=== PATIENT | female | born 1940 | race Caucasian/White ===

== ENCOUNTER 2022-07-02 13:06 | Emergency (ER) | payer MEDICARE, OTHER, SELFPAY ==
[2022-07-02 13:08] VITALS: BP 220/110; PULSE 111; RESP 16; TEMP 36.5; O2SAT 97; BMI 19.5
--- NOTE | 2022-07-02 13:16 | EKG12_ITS ---
Test Reason : CP Blood Pressure : / mmHG Vent. Rate : 089 BPM Atrial Rate : 089 BPM P-R Int : 126 ms QRS Dur : 090 ms QT Int : 380 ms P-R-T Axes : 063 015 061 degrees QTc Int : 462 ms Normal sinus rhythm Nonspecific ST abnormality Abnormal ECG Confirmed by KVNG ANN, MORRIS ([id number]), avid editor CATIA MALCOLM ([id number]) on 07/03/2022 9:44:51 AM Referred By: LEAH Confirmed By:MORRIS CALDERON MD
--- NOTE | 2022-07-02 13:16 | RAD_ITS ---
STUDY: X-RAY CHEST REASON FOR EXAM: Female, 81 years old. Chest pain TECHNIQUE: Single AP portable view of the chest. COMPARISON: None. FINDINGS: Hyperinflation. The lungs are clear. There is no demonstrated pleural abnormality. Normal size heart. Normal mediastinum and robbin. Normal visualized pulmonary arteries. There is atherosclerotic calcification of the aortic arch with tortuosity. There are diffuse degenerative changes of the visualized thoracic spine. Normal visualized ribs, clavicles, and shoulders. There is no demonstrated abnormality of the visualized soft tissue structures of the upper abdomen. RAD/Chest 1 View (Portable) IMPRESSION: Hyperinflation. The lungs are clear. Electronically Signed: Misael Enrique MD at 15:10 EST ,
[2022-07-02 13:40] LABS: Absolute Lymphocyte Count 1.55 X10^3/uL (0.83-4.51); Absolute Neutrophil Count 4.1 X10^3/uL (2.0-7.7); Basophil# 0.04 X10^3/uL; Basophil% 0.6 % (0-1); Eosinophil# 0.13 X10^3/uL; Hematocrit 36.4 % (37-47); Hemoglobin 12.2 g/dL (12.0-15.0); Lymphocyte # 1.55 X10^3/ul (0.83-4.51); Lymphocyte % 23.8 % (19-41); Mean Corp Hgb Conc 33.5 g/dL (32-36); Mean Corpuscular Hgb 35.4 pg (27.0-32.0); Mean Corpuscular Volume 105.5 fL (81-99); Mean Platelet Vol. 9.8 fl (6.2-12.0); Monocyte# 0.65 X10^3/uL; NRBC Flagged by Analyzer 0 % (0-5); Neutrophil # 4.13 X10^3/uL (2.7-7.7); Neutrophil % 63.4 % (47-70); Platelet Count 225 K/mm3 (150-450); RBC Distribution Width CV 12.3 % (11.6-14.6); RBC Distribution Width SD 48.8 fl (35.1-43.9); Red Blood Count 3.45 M/mm3 (4.2-5.4); White Blood Count 6.5 K/mm3 (4.4-11.0)
[2022-07-02 13:56] LABS: Anion Gap 3 (5-15); BUN 21 mg/dL (7-18); BUN/Creat Ratio 25.6 RATIO (10-20); Calcium,Total 9.3 mg/dL (8.5-10.1); Chloride 103 mmol/L (98-107); Creatinine, Serum 0.82 mg/dL (0.55-1.02); EST Glomerular Filtration Rate 71 mL/min (>60); Est Glom Filt Rate - Afr Amer 86 mL/min (>60); Estimated Creatinine Clearance 43.82 ml/min; Glucose 131 mg/dL (74-106); Potassium 3.9 mmol/L (3.5-5.1); Sodium Level 137 mmol/L (136-145); Troponin-I HS 8 pg/mL (3.0-54.0)
[2022-07-02 14:06] VITALS: BP 182/98
--- NOTE | 2022-07-02 14:31 | EDS_ITS ---
HPI History of Present Illness Chief Complaint: Palpitations Detail of Chief Complaint: Palpitations Informant: patient Onset/Context/Timing Onset: Today Context: Sudden Onset Quality: I feel my heart beating in my chest Location: Chest Current Severity: Gone Maximum Severity: Moderate Worsened by: Nothing Relieved by: Nothing Associated Symptoms Associated Symptoms: None Narrative Narrative: Patient is a 81-year-old woman who presents with palpitations. She denies shortness of breath, dyspnea on exertion, orthopnea or PND. She denies chest discomfort. She denies history of PE or DVT. She denies leg pain, swelling discoloration. She denies abdominal pain. She denies black or maroon-colored stool. She denies headache, visual, ocular auditory symptoms. She denies ringing or ears. She denies numbness or tingling in her arms or legs. She denies problems with coordination or balance. She denies problems with speech. She denies problems swallowing. She recently visited her primary care physician. Her blood pressure was increased. Patient does have history of hypertension. Old records date back to 2012 and indicate patient has history of uterine prolapse. She also has history of hypertension. [facility] Medical History (Updated 07/02/22 @ 15:[address] Brent Riley MD) HTN (hypertension) Home Medications losartan 25 mg tablet 50 mg PO DAILY 07/02/22 [History Last Taken Unknown] meloxicam 15 mg tablet 15 mg PO DAILY 07/02/22 [History Last Taken Unknown] Allergy/AdvReac Type Severity Reaction Status Date / Time No Known Allergies Allergy Verified 07/02/22 13:09 Social History (Updated 07/02/22 @ 14:[address] Brent Riley MD) household members: none Smoking Status: Never smoker substance use type: does not use ROS ROS ED Constitutional Constitutional ED: Denies chills, fever(s), subjective, sweats or weight loss Eyes Eyes: Denies blurry vision, change in vision or diplopia ENT ENT ED: Denies ear pain, rhinorrhea or sore throat Cardiovascular Cardiovascular: Reports other Details: Per HPI narrative ; Denies chest pain, orthopnea, palpitations, paroxysmal nocturnal dyspnea or racing heartbeat Respiratory/Chest Respiratory/Chest: Denies cough, dyspnea, dyspnea on exertion, orthopnea or paroxysmal nocturnal dyspnea Gastrointestinal Gastrointestinal: Denies abdominal pain, melena, nausea or vomiting Genitourinary Genitourinary ED: Denies dysuria, hematuria or urinary frequency Musculoskeletal Musculoskeletal: Reports other Details: Does complain of left hip pain. Is on NSAID for pain. ; Denies arthralgias, back pain, myalgias or neck pain Neurologic Neurologic: Denies headache(s), paresthesias or weakness Hematologic/Lymphatic Hematologic/Lymphatic: Reports systems reviewed and no addt'l complaints, except as documented; Denies easy bruising or lymphadenopathy Allergic/Immunologic Allergic/Immunologic ED: Denies mouth swelling, tongue swelling or urticaria EXAM Physical Exam Const Vital Signs: 07/02/22 13:08 07/02/22 14:06 07/02/22 14:06 Temperature 97.7 F L Temperature Source Oral Pulse Rate 111 H Respiratory Rate 16 Respiratory Pattern Blood Pressure 220/110 H 182/98 H Blood Pressure Mean 146 126 Pulse Ox 97 Oxygen Delivery Method Room Air Room Air 07/02/22 14:06 Temperature Temperature Source Pulse Rate Respiratory Rate Respiratory Pattern Normal Blood Pressure Blood Pressure Mean Pulse Ox Oxygen Delivery Method Positive well nourished and well developed General Appearance ED: well developed and NAD; Negative for cyanotic or diaphoretic HEENT Reports moist mucous membranes HEENT Narrative: Head is atraumatic normocephalic. Ears normal. Nares patent. Uvula midline. No abnormality posterior pharynx. There is no deviation with protrusion. Eyes PERRL and EOMs intact bilaterally General Eye ED: Negative for pale conjunctiva or scleral icterus Neck no lymphadenopathy, supple and no JVD Neck Narrative: Trachea is midline. There is no dysphonia. There is no stridor. Resp normal respiratory effort and clear to auscultation bilaterally Cardio regular rate, regular rhythm, S1 normal heart sound, S2 normal heart sound and no murmurs GI normal to inspection, nondistended, normoactive bowel sounds, non-tender, non- distended and no masses; Negative for hepatosplenomegaly Back/Spine no CVA tenderness Extremity normal to inspection General Extremety ED: Negative for edema or tenderness General Extremity: Negative for edema Neuro oriented x3, CN's II-XII intact bilaterally and no sensory deficits noted Sensorium / Orientation: alert Motor Exam: strength 5/5 throughout Psych mental status grossly normal Skin no rashes or lesions noted, no wounds and skin turgor normal MDM MDM MDM Narrative Medical decision making narrative: Patient's presents with palpitations. This is very nonspecific. Nurse protocol orders were placed. EKG was obtained to rule out dysrhythmia. Because of elevated blood pressure blood work was obtained to assess for endorgan dysfunction. She does have history of hypertension. Prior records were reviewed and summarized in the HPI narrative. Patient's losartan dose was increased to 25 mg to 50 mg. She is scheduled to see her practitioner next Saturday. Since patient is asymptomatic has no evidence of endorgan injury and recently had her medication dose doubled we will not add any new medication. Lab Data Attestation: I reviewed the patient's lab results. Lab results narrative: CBC reveals mild macrocytic anemia. Basic metabolic panel is unremarkable with a GFR of 71. Glucose is slightly dated 07/17. Labs: Laboratory Results - last 24 hr 07/02/22 07/02/22 13:32 13:32 WBC 6.5 RBC 3.45 L Hgb 12.2 Hct 36.4 L MCV 105.5 H MCH 35.4 H MCHC 33.5 RDW Std Deviation 48.8 H RDW Coeff of Frantz 12.3 Plt Count 225 MPV 9.8 Immature Gran % (Auto) 0.200 Neut % (Auto) 63.4 Lymph % (Auto) 23.8 [place] % (Auto) 10.0 Eos % (Auto) 2.0 Baso % (Auto) 0.6 Absolute Neuts (auto) 4.1 Absolute Lymphs (auto) 1.55 Nucleated RBC % 0 Sodium 137 Potassium 3.9 Chloride 103 Carbon Dioxide 31.0 Anion Gap 3 L BUN 21 H Creatinine 0.82 Estim Creat Clear Calc 43.82 Est GFR (MDRD) Af Amer 86 Est GFR (MDRD) Non-Af 71 BUN/Creatinine Ratio 25.6 H Glucose 131 H Calcium 9.3 Troponin I High Sens 8 Radiography Diagnostic Testing: Clinical Impression(s) from Imaging Studies Chest X-Ray 07/02/22 13:16 IMPRESSION: Hyperinflation. The lungs are clear. Electronically Signed: Misael Enrique MD at 15:10 EST , EKG Initial EKG: Attestation: I personally reviewed and interpreted this EKG as follows: Interpretation: Sinus Rhythm (The rate is 89. The EKG has artifact which computer is reading is nonspecific. The EKG is normal. AK interval 226 ms. QS duration 90 ms. QT duration 380 ms. [place] is normal.) Discharge Plan Triage Chief Complaint: Palpitations ED Provider: Brent Riley Dx/Rx/DC Orders Clinical Impression: Accelerated essential hypertension, Palpitations, Acute hyperglycemia Instructions: ED Hypertension, Established, ED Palpitations, ED Hyperglycemia New Susp Diabetes Prescriptions: No Action meloxicam 15 mg tablet 15 mg PO DAILY Label Comments: take 1 tablet by mouth once daily losartan 25 mg tablet 50 mg PO DAILY Primary Care Provider: BRIEN MONTOYA Referrals: BRIEN MONTOYA NP-C [Primary Care Provider] - Keep [facility] appointment Disposition Disposition: Home, Self Care
[2022-07-02 15:42] VITALS: BP 168/101; PULSE 68; RESP 18; TEMP 37; O2SAT 99
== END 2022-07-02 15:42 | disposition home or self-care (01) ==
PROVIDERS: Emergency Provider Emergency Medicine; PCP Nurse Practitioner; Visit Provider Emergency Medicine
DX: R00.2 Palpitations (principal); I10 Essential (primary) hypertension; R73.9 Hyperglycemia, unspecified
CPT/HCPCS: 71045; 80048; 84484; 85025; 93005; 99284; A4216

== ENCOUNTER → 2022-08-06 | Outpatient (CLI) | payer MEDICARE, OTHER, SELFPAY ==
--- NOTE | 2022-08-06 17:41 | STRESSREP ---
Stress Test Report Pharmacologic myocardial perfusion stress test. 81-year-old lady with a history of hypertension and for preoperative evaluation Resting EKG demonstrates sinus rhythm with a rate of 80 bpm and occasional premature ventricular complex. Resting blood pressure is 122/86 mmHg. 0.4 mg of regadenoson was infused per usual protocol followed by rapid intravenous saline flush injection. Continuous EKG monitoring was performed. The maximum heart rate was 104 bpm which was 73% of max impacted heart rate the maximum workload was 1 metabolic equivalent. At rest there were no ST or T wave changes noted to suggest ischemia and at peak infusion nonspecific ST changes were noted which did not meet the criteria for ischemia. No clinical angina is noted. The final blood pressure was 120/78 mmHg. Myocardial perfusion protocol. 11.5 mCi of technetium 99m sestamibi was injected at rest. 0.4 mg of regadenoson was infused per usual protocol. At peak infusion 36 mCi of technetium 99m sestamibi was injected stress images were obtained stress and rest images were reconstructed and compared in the short axis vertical long and horizontal long axis. Gated images were also obtained. Perfusion SPECT analysis: Review of the stress images demonstrate normal uptake of tracer noted in all areas of the myocardium. The resting images similar demonstrated normal uptake of tracer noted in all areas of the myocardium. No areas of reversibility are noted to suggest ischemia and no previous infarct is noted. Gated SPECT analysis: The gated ejection fraction is 58. Conclusion: Normal pharmacologic myocardial perfusion stress test. Normal ejection fraction.
== END | disposition home or self-care (01) ==
LOC: CVS 07:03
PROVIDERS: PCP Nurse Practitioner; Visit Provider Internal Medicine Cardiovascular Disease
DX: Z01.810 Encounter for preprocedural cardiovascular examination (principal)
CPT/HCPCS: 78452; 93017; A9500; A4216; J2785

== ENCOUNTER 2023-05-12 10:37 | Emergency (ER) | payer MEDICARE, OTHER, SELFPAY ==
[2023-05-12 10:38] VITALS: BP 190/111; PULSE 124; RESP 16; TEMP 36.6; O2SAT 100; BMI 213.2
--- NOTE | 2023-05-12 10:43 | ED.RN ---
Dr. Herrera aware of symptoms
--- NOTE | 2023-05-12 11:06 | EDS_ITS ---
HPI <FAWAD Zazueta - Last Filed: 05/12/23 13:38> History of Present Illness Chief Complaint: Dizziness Narrative Narrative: 82 year old female with PMH of HTN presents with lightheadedness. She felt briefly lightheaded 2 days ago and again this morning after waking up. She has no associated symptoms. Denies headache, vision changes, n/v, chest pain, sob, or abdominal pain. No recent fever or cough. No bladder or bowel changes. She is on losartan and hctz with no recent changes. She feels back to normal now. Denies vertiginious symptoms. She also has left hip soreness since a mechanical fall a week ago where she caught herself with both hands and did not directly hit her hip but she is worried because she has a replacement. PFSH <FAWAD Zazueta - Last Filed: 05/12/23 13:38> PFSH Medical History Essential hypertension Osteoarthritis Palpitations Uterine prolapse Home Medications acyclovir 400 mg tablet 400 mg PO BID 07/17/22 [History Last Taken Unknown] cholecalciferol (vitamin D3) 25 mcg (1,000 unit) capsule 25 mcg PO DAILY [History Last Taken Unknown] multivitamin 1 tab PO DAILY 07/17/22 [History Last Taken Unknown] vitamin B complex (B Complex-Vitamin B12 tablet) 1 tab PO DAILY 07/17/22 [History Last Taken Unknown] acetaminophen 650 mg tablet,extended release (Tylenol 8 Hour) 650 mg PO ONCE PRN 07/20/22 [History Last Taken Unknown] losartan 100 mg tablet 100 mg PO DAILY #90 tabs 07/20/22 [Rx Last Taken Unknown] psyllium husk 0.52 gram capsule (Fiber (psyllium husk)) 0.52 g PO BID 07/20/22 [History Last Taken Unknown] turmeric 900 mg-turmeric root extract 100 mg-black pepper 5 mg capsule 2 cap PO DAILY 07/20/22 [History Last Taken Unknown] Allergy/AdvReac Type Severity Reaction Status Date / Time No Known Allergies Allergy Verified 05/12/23 10:40 Family History Mother Cancer Breast Arthritis Dementia Father Cancer Liver Arthritis Surgical History History of bunionectomy of both great toes (~2005) History of hip replacement History of hysterectomy Social History household members: none Smoking Status: Never smoker alcohol intake: current alcohol intake frequency: a few times a week Alcohol type: wine substance use type: does not use caffeine: Yes Type: coffee Number of servings: 1 ROS <FAWAD Zazueta - Last Filed: 05/12/23 13:38> ROS ED ROS Narrative Constitutional: Negative for fever, chills, malaise. Eyes: Negative for visual change. CVS: Negative for palpitations, chest pain, syncope. Respiratory: Negative for shortness of breath, cough. GI: Negative for abdominal pain, nausea, vomiting, diarrhea, melena, hematochezia. : Negative for dysuria, hematuria or frequency. Neuro: Negative for headache, motor/sensory dysfunction. EXAM <FAWAD Zazueta - Last Filed: 05/12/23 13:38> Physical Exam Narrative Exam Narrative: CONST: Patient sitting in no acute distress. EYES: Normal inspection. PERRL, EOMI. ENT: Normal inspection, moist mucous membranes. NECK: Normal inspection. RESP: No respiratory distress, CTAB. CVS: Regular rate and rhythm, no murmur, no gallop. ABD: Soft and nontender, no guarding or rebound, nondistended. SKIN: Color normal, no rash, warm, dry, intact. EXTREMITIES: Normal appearance, no pedal edema. 5/5 upper and extremity strength, normal sensation, 2+ radial and PT pulses. NEURO: Oriented x4. Normal gait. PSYCH: Normal affect. Const Vital Signs: 05/12/23 10:38 05/12/23 11:44 Temperature 98 F Temperature Source Temporal Pulse Rate 124 H 91 Respiratory Rate 16 Blood Pressure 190/111 H 153/87 H Blood Pressure Mean 137 109 Pulse Ox 100 Oxygen Delivery Method Room Air <Vinay Canales MD - Last Filed: 05/12/23 19:16> Physical Exam Const Vital Signs: 05/12/23 10:38 05/12/23 11:44 Temperature 98 F Temperature Source Temporal Pulse Rate 124 H 91 Respiratory Rate 16 Blood Pressure 190/111 H 153/87 H Blood Pressure Mean 137 109 Pulse Ox 100 Oxygen Delivery Method Room Air [facility] <FAWAD Zazueta - Last Filed: 05/12/23 13:38> [facility] Narrative Medical decision making narrative: History gathered from: Patient and family member Patient had lightheadedness this morning with no associated symptoms. Now feels back to normal. She appears well and nontoxic. Initially she was hypertensive and tachycardic with repeat vitals are normal. During my examination heart rates in the 90s in sinus rhythm. Lungs clear. Abdomen soft and nontender. She is neurologically intact. She is describing lightheaded symptoms, not vertigo. Broad workup including CBC, BMP, UA are negative. EKG is sinus rhythm with no ischemic changes and troponin is 6. With normal neurological exam and no vertiginous symptoms I do not think a CT brain is indicated. She also complained of left hip soreness but has no tenderness or injuries on exam. X- ray was obtained due to her history of arthroplasty and is normal. She remains asymptomatic here and was discharged home to follow-up with primary care. Lab Data Attestation: I reviewed the patient's lab results. Labs: Laboratory Results - last 24 hr 05/12/23 05/12/23 11:23 11:40 WBC 6.2 RBC 3.62 L Hgb 12.8 Hct 38.2 MCV 105.5 H MCH 35.4 H MCHC 33.5 RDW Std Deviation 45.1 H RDW Coeff of Frantz 11.5 L Plt Count 232 MPV 10.1 Immature Gran % (Auto) 0.300 Neut % (Auto) 71.4 H Lymph % (Auto) 19.7 [place] % (Auto) 7.7 Eos % (Auto) 0.3 Baso % (Auto) 0.6 Absolute Neuts (auto) 4.4 Absolute Lymphs (auto) 1.22 Nucleated RBC % 0 Sodium 136 Potassium 3.7 Chloride 99 Carbon Dioxide 32.0 Anion Gap 5 BUN 18 Creatinine 0.91 Estim Creat Clear Calc 40.79 Est GFR (MDRD) Af Amer 76 Est GFR (MDRD) Non-Af 63 BUN/Creatinine Ratio 19.8 Glucose 139 H Calcium 9.6 Troponin I High Sens 6 Urine Color Yellow Urine Clarity Clear Urine pH 7.0 Ur Specific [place] 1.010 Urine Protein Negative Urine Glucose (UA) Normal Urine Ketones Negative Urine Occult Blood Negative Urine Nitrite Negative Urine Bilirubin Negative Urine Urobilinogen Normal Ur Leukocyte Esterase Negative Urine RBC 0 SEEN Urine WBC 0 SEEN Ur Squamous Epith Cells 0 SEEN Urine Bacteria 0 SEEN Urine Mucus 0 SEEN Radiography Diagnostic Testing: Clinical Impression(s) from Imaging Studies Chest X-Ray 05/12/23 11:45 IMPRESSION: No acute cardiopulmonary process identified. Electronically Signed: Nikki Landry MD at 12:25 EST , Hip/Pelvis X-Ray 05/12/23 11:45 IMPRESSION: Left hip arthroplasty without acute fracture or dislocation identified. Electronically Signed: Nikki Landry MD at 12:24 EST , ED attending interpretation of 1-view chest x-ray shows normal heart size, no acute infiltrate, edema, or effusion. ED attending interpretation of left hip and pelvis shows no fracture or dislocation, arthroplasty intact <Vinay Canales MD - Last Filed: 05/12/23 19:16> [facility] MDM Narrative Medical decision making narrative: History gathered from: Patient and family member Patient had lightheadedness this morning with no associated symptoms. Now feels back to normal. She appears well and nontoxic. Initially she was hypertensive and tachycardic with repeat vitals are normal. During my examination heart rates in the 90s in sinus rhythm. Lungs clear. Abdomen soft and nontender. She is neurologically intact. She is describing lightheaded symptoms, not vertigo. Broad workup including CBC, BMP, UA are negative. EKG is sinus rhythm with no ischemic changes and troponin is 6. With normal neurological exam and no vertiginous symptoms I do not think a CT brain is indicated. She also complained of left hip soreness but has no tenderness or injuries on exam. X- ray was obtained due to her history of arthroplasty and is normal. She remains asymptomatic here and was discharged home to follow-up with primary care. Dr. Canales: I have personally performed a face to face assessment of the patient and have reviewed the ALTHEA Note. I performed a substantive portion of the visit including all aspects of the following. My choudhury findings include: History is lightheaded this morning, symptoms resolved. Exam is afebrile. Vital signs noted. Regular rate and rhythm. Lungs clear to auscultation bilaterally. Abdomen soft and nontender with normoactive bowel sounds. Neurological examination nonfocal and nonlateralizing. Medical Decision Making: Check EKG. EKG interpreted by myself independently demonstrates normal sinus rhythm without ectopy or acute ST changes. No STEMI. Check labs. I reviewed her laboratory work. Blood pressure has come down on its own. I do not feel she requires observation at this time. She is asymptomatic. Return instructions to the emergency department were reviewed. Disposition is discharged home in stable condition. Other additions or changes: [None] History & Record Review Discussion w/independent historian: Patient and Family Additional record(s) reviewed:: Prior ED visit Lab Data Labs: Laboratory Results - last 24 hr 05/12/23 05/12/23 11:23 11:40 WBC 6.2 RBC 3.62 L Hgb 12.8 Hct 38.2 MCV 105.5 H MCH 35.4 H MCHC 33.5 RDW Std Deviation 45.1 H RDW Coeff of Frantz 11.5 L Plt Count 232 MPV 10.1 Immature Gran % (Auto) 0.300 Neut % (Auto) 71.4 H Lymph % (Auto) 19.7 [place] % (Auto) 7.7 Eos % (Auto) 0.3 Baso % (Auto) 0.6 Absolute Neuts (auto) 4.4 Absolute Lymphs (auto) 1.22 Nucleated RBC % 0 Sodium 136 Potassium 3.7 Chloride 99 Carbon Dioxide 32.0 Anion Gap 5 BUN 18 Creatinine 0.91 Estim Creat Clear Calc 40.79 Est GFR (MDRD) Af Amer 76 Est GFR (MDRD) Non-Af 63 BUN/Creatinine Ratio 19.8 Glucose 139 H Calcium 9.6 Troponin I High Sens 6 Urine Color Yellow Urine Clarity Clear Urine pH 7.0 Ur Specific [place] 1.010 Urine Protein Negative Urine Glucose (UA) Normal Urine Ketones Negative Urine Occult Blood Negative Urine Nitrite Negative Urine Bilirubin Negative Urine Urobilinogen Normal Ur Leukocyte Esterase Negative Urine RBC 0 SEEN Urine WBC 0 SEEN Ur Squamous Epith Cells 0 SEEN Urine Bacteria 0 SEEN Urine Mucus 0 SEEN Radiography Diagnostic Testing: Clinical Impression(s) from Imaging Studies Chest X-Ray 05/12/23 11:45 IMPRESSION: No acute cardiopulmonary process identified. Electronically Signed: Nikki Landry MD at 12:25 EST Reading Location ID and State: [facility] / [place] Tel , Service support , Hip/Pelvis X-Ray 05/12/23 11:45 IMPRESSION: Left hip arthroplasty without acute fracture or dislocation identified. Electronically Signed: Nikki Landry MD at 12:24 EST Reading Location ID and State: [facility] / [place] Tel , Service support , Discharge Plan Triage Chief Complaint: Dizziness ED Midlevel Provider: Roopa Velazquez ED Provider: Vinay Canales Dx/Rx/DC Orders Clinical Impression: Lightheadedness Instructions: Dizziness Fainting Causes Prescriptions: No Action acyclovir 400 mg tablet 400 mg PO BID vitamin B complex [B Complex-Vitamin B12] Tablet 1 tab PO DAILY multivitamin Tablet 1 tab PO DAILY cholecalciferol (vitamin D3) 25 mcg (1,000 unit) capsule 25 mcg PO DAILY acetaminophen [Tylenol 8 Hour] 650 mg tablet extended release 650 mg PO ONCE PRN psyllium husk [Fiber (psyllium husk)] 0.52 gram capsule 0.52 g PO BID turmeric-turmeric ext-pepper 900-100-5 mg capsule 2 cap PO DAILY losartan 100 mg tablet 100 mg PO DAILY Qty: 90 3RF Primary Care Provider: BRIEN MONTOYA Referrals: BRIEN MONTOYA NP-C [Primary Care Provider] - Activity Restrictions/Additional Instructions: Please follow-up with your primary care doctor or return to ER if symptoms worsen Disposition Disposition: Home, Self Care Discharge Date/Time: 05/12/23 14:21
[2023-05-12] MEDS: 0.9% Normal Saline (1000mL) 1,000 ML 999 ML IV (11:25)
[2023-05-12 11:35] LABS: Absolute Lymphocyte Count 1.22 X10^3/uL (0.83-4.51); Absolute Neutrophil Count 4.4 X10^3/uL (2.0-7.7); Basophil# 0.04 X10^3/uL; Basophil% 0.6 % (0-1); Eosinophil# 0.02 X10^3/uL; Eosinophils% 0.3 % (0-5); Hematocrit 38.2 % (37-47); Hemoglobin 12.8 g/dL (12.0-15.0); Lymphocyte # 1.22 X10^3/ul (0.83-4.51); Lymphocyte % 19.7 % (19-41); Mean Corp Hgb Conc 33.5 g/dL (32-36); Mean Corpuscular Hgb 35.4 pg (27.0-32.0); Mean Corpuscular Volume 105.5 fL (81-99); Mean Platelet Vol. 10.1 fl (6.2-12.0); Monocyte# 0.48 X10^3/uL; Monocyte% 7.7 % (0-10); NRBC Flagged by Analyzer 0 % (0-5); Neutrophil # 4.42 X10^3/uL (2.7-7.7); Neutrophil % 71.4 % (47-70); Platelet Count 232 K/mm3 (150-450); RBC Distribution Width CV 11.5 % (11.6-14.6); RBC Distribution Width SD 45.1 fl (35.1-43.9); Red Blood Count 3.62 M/mm3 (4.2-5.4); White Blood Count 6.2 K/mm3 (4.4-11.0)
[2023-05-12 11:44] VITALS: BP 153/87; PULSE 91
--- NOTE | 2023-05-12 11:45 | RAD_ITS ---
HISTORY: dizziness. TECHNIQUE: XR Chest 1 View. COMPARISON: 07/02/2022. FINDINGS: CARDIOMEDIASTINAL BORDERS: Cardiac silhouette within normal limits in size. Mediastinal contour unremarkable. LUNGS: Chronic coarse interstitial markings in the lung bases. PLEURA: No pleural effusion or pneumothorax seen. OSSEOUS STRUCTURES: Unremarkable. RAD/Chest 1 View (Portable) IMPRESSION: No acute cardiopulmonary process identified. Electronically Signed: Nikki Landry MD at 12:25 EST ,
--- NOTE | 2023-05-12 11:45 | RAD_ITS ---
HISTORY pain. TECHNIQUE: XR Hip Unilateral with Pelvis when performed; 2-3 Views. COMPARISON: None. FINDINGS: BONES : No acute fracture identified. No abnormal periprosthetic lucency seen. JOINTS: Left hip in place without dislocation. Mild degenerative change of the right hip. RAD/HIP, UNI W/ Pelvis 2-3 Views IMPRESSION: Left hip arthroplasty without acute fracture or dislocation identified. Electronically Signed: Nikki Landry MD at 12:24 EST ,
[2023-05-12 11:52] LABS: Bacteria 0 SEEN /hpf (None Seen); Mucous, Urine 0 SEEN /hpf (<or=2+); Red Blood Cells-Urine 0 SEEN /hpf (0-5); Squamous Epithelial Cells - UA 0 SEEN /hpf (5-10); White Blood Cells 0 SEEN /hpf (0-5)
[2023-05-12 11:57] LABS: Anion Gap 5 (5-15); BUN 18 mg/dL (7-18); BUN/Creat Ratio 19.8 RATIO (10-20); Calcium,Total 9.6 mg/dL (8.5-10.1); Chloride 99 mmol/L (98-107); Creatinine, Serum 0.91 mg/dL (0.55-1.02); EST Glomerular Filtration Rate 63 mL/min (>60); Est Glom Filt Rate - Afr Amer 76 mL/min (>60); Estimated Creatinine Clearance 40.79 ml/min; Glucose 139 mg/dL (74-106); Potassium 3.7 mmol/L (3.5-5.1); Sodium Level 136 mmol/L (136-145); Troponin-I HS 6 pg/mL (3.0-54.0)
[2023-05-12 12:02] LABS: Glucose, Dipstick Normal (Normal); Ketone-Dipstick Negative (Negative); Leukocyte Esterase-Dipstick Negative /ul (Negative); Nitrite-Dipstick Negative (Negative); Occult Blood-Urine Negative /ul (Negative); Protein-Dipstick Negative (Negative); Urine Bilirubin Dipstick Negative (Negative); Urine Urobilinogen Normal (Normal)
[2023-05-12 12:03] LABS: Color, Urine Yellow (Yellow); Urine Clarity Clear (Clear)
== END 2023-05-12 14:21 | disposition home or self-care (01) ==
PROVIDERS: Physician Assistant; Emergency Provider Emergency Medicine; PCP Nurse Practitioner; Visit Provider Emergency Medicine
DX: R42 Dizziness and giddiness (principal); M25.552 Pain in left hip; I10 Essential (primary) hypertension; Z79.899 Other long term (current) drug therapy
CPT/HCPCS: 71045; 73502; 80048; 81001; 84484; 85025; 90471; 96360; 99282; J7030; A4216

== ENCOUNTER → 2024-04-22 | Outpatient (CLI) | payer MEDICARE, OTHER, SELFPAY ==
[2024-04-22 10:35] LABS: Anion Gap 5 (5-15); BUN 15 mg/dL (7-18); BUN/Creat Ratio 20.2 RATIO (10-20); Calcium,Total 9.2 mg/dL (8.5-10.1); Chloride 103 mmol/L (98-107); Cholesterol 176 mg/dL (200); Creatinine, Serum 0.74 mg/dL (0.55-1.02); EST Glomerular Filtration Rate 80 mL/min (>60); Est Glom Filt Rate - Afr Amer 96 mL/min (>60); Glucose 106 mg/dL (74-106); High Density Lipoprotein 89 mg/dL; Potassium 3.9 mmol/L (3.5-5.1); Sodium Level 137 mmol/L (136-145); Triglycerides 110 mg/dL; Very Low Density Lipoprotein 22 mg/dL (5-40)
== END | disposition home or self-care (01) ==
PROVIDERS: PCP Nurse Practitioner; Referring Provider Internal Medicine Cardiovascular Disease; Visit Provider Internal Medicine Cardiovascular Disease
DX: I10 Essential (primary) hypertension (principal)
CPT/HCPCS: 36415; 80048; 80061